=== PATIENT | male | born 1945 | race Caucasian/White ===

== ENCOUNTER 2017-07-07 10:10 | Inpatient (IN) | payer OTHER ==
[~2017-07-07 10:10] MED LIST: ATROPINE 1 MG/10 ML SYRINGE IV; CIPRO 400 MG/200 ML D5W IVPB; EPHEDrine SULFATE 50 MG/5 ML SYG IV; FENTAnyl 50 MCG/ML VIAL IV; HYDROmorphONE (0.2 MG/ML) 10ML SYG IV; LABETALOL HCL 20MG INJ IV; LIDOCAINE 100 MG SYRINGE; MEPERIDINE 25 MG INJ IV; MIDAZOLAM 1 MG/ML 2 ML INJ IV; OXYCODONE/ACETAMINOPHEN (5/325) TAB PO; ROCURONIUM 50 MG INJ; hydrALAzine 20 MG INJ IV; morphine (1 MG/ML) 10ML SYRINGE IV
[2017-07-07] MEDS ORDERED: MIDAZOLAM 1 MG/ML 2 ML INJ (10:50)
[2017-07-07] MEDS ORDERED: ROCURONIUM 50 MG INJ (10:50)
[2017-07-07] MEDS ORDERED: PROPOFOL 20 ML (10:50)
[2017-07-07] MEDS ORDERED: GLYCOPYRROLATE 0.4 MG INJ (10:50)
[2017-07-07] MEDS ORDERED: FENTAnyl 50 MCG/ML VIAL ×2 (10:50→15:53)
[2017-07-07] MEDS ORDERED: NEOSTIGMINE 3 MG/3 ML SYRINGE (10:50)
[2017-07-07] MEDS ORDERED: DEXAMETHASONE 4 MG/ML 1 ML INJ (10:51)
[2017-07-07] MEDS ORDERED: ONDANSETRON 4 MG INJ (10:52)
[2017-07-07 11:20] LABS: ADD MAN DIFF? NO
[2017-07-07 11:24] LABS: BASOPHIL # 0.1 10^3/ul (0.0-0.1); BASOPHILS % 0.5 % (0.0-2.0); EOSINOPHILS # 0.4 10^3/ul (0.0-0.5); EOSINOPHILS % 3.7 % (0.0-7.0); HEMATOCRIT 41.4 % (42.0-52.0); HEMOGLOBIN 14.1 g/dl (14.0-18.0); LYMPHOCYTES # 2.4 10^3/ul (0.8-2.9); LYMPHOCYTES % 23.1 % (15.0-51.0); MEAN CORPUSCULAR HEMOGLOBIN 30.5 pg (29.0-33.0); MEAN CORPUSCULAR HGB CONC 34.1 g/dl (32.0-37.0); MEAN CORPUSCULAR VOLUME 89.6 fl (82.0-101.0); MEAN PLATELET VOLUME 10.3 fl (7.4-10.4); MONOCYTE # 0.9 10^3/ul (0.3-0.9); MONOCYTES % 8.4 % (0.0-11.0); NEUTROPHIL # 6.6 10^3/ul (1.6-7.5); NEUTROPHILS % 63.8 % (39.0-77.0); PLATELET COUNT 274 10^3/UL (140-415); RED BLOOD COUNT 4.62 10^6/ul (4.70-6.10); RED CELL DISTRIBUTION WIDTH 14.4 % (11.5-14.5)
[2017-07-07 11:24] LABS: WHITE BLOOD COUNT 10.3 10^3/ul (4.8-10.8)
[2017-07-07 11:50] LABS: ALANINE AMINOTRANSFERASE 32 IU/L (13-69); ALBUMIN 4.3 g/dl (3.3-4.9); ALBUMIN/GLOBULIN RATIO 1.16; ALKALINE PHOSPHATASE 123 IU/L (42-121); ANION GAP 15 (8-16); ASPARTATE AMINO TRANSFERASE 41 IU/L (15-46); BILIRUBIN,INDIRECT 0.2 mg/dl (0-1.1); BILIRUBIN,TOTAL 0.2 mg/dl (0.2-1.3); CARBON DIOXIDE 31 mmol/L (21-31); CHLORIDE 101 mmol/L (97-110); GLUCOSE 108 mg/dl (70-220); INR 0.93; PROTIME 12.5 Sec (11.9-14.9)
[2017-07-07 12:01] LABS: CALCIUM 9.1 mg/dl (8.4-10.2); CREATININE 1.17 mg/dl (0.61-1.24); POTASSIUM 3.4 mmol/L (3.5-5.1); SODIUM 144 mmol/L (135-144)
[2017-07-07 12:03] LABS: BLOOD UREA NITROGEN 25 mg/dl (7-20)
[2017-07-07 16:11] LABS: HEMATOCRIT 32.2 % (42.0-52.0); HEMOGLOBIN 10.7 g/dl (14.0-18.0)
[2017-07-07] MEDS ORDERED: SUGAMMADEX SODIUM 200 MG/2 ML VIAL IV (16:53)
[2017-07-07] MEDS: CIPROFLOXACIN 400MG/D5W 200 ML IVPB (17:58)
[2017-07-07] MEDS ORDERED: CEPASTAT LOZENGE MT (18:00)
[2017-07-07] MEDS: ONDANSETRON 4 MG INJ IV (18:02)
[2017-07-07] MEDS: FENTAnyl 50 MCG/ML VIAL IV (18:03)
[2017-07-07] MEDS: DIPHENHYDRAMINE 50 MG INJ IV (18:16)
[2017-07-07] MEDS: CEPASTAT LOZENGE MT (18:40)
[2017-07-07] MEDS: DEXTROSE 5%-0.45% NACL 1,000 ML IV (19:12)
[2017-07-07] MEDS: LORAZEPAM 1 MG TAB PO (19:14)
[2017-07-07] MEDS: CIPROFLOXACIN 500 MG TAB PO (19:43)
[2017-07-07] MEDS: TOLTERODINE (SR) 4 MG CAP PO (19:43)
[2017-07-07] MEDS: morphine 2 MG INJ IV (22:05)
[2017-07-07] MEDS: BELLADONNA ALK/OPIUM SUPP PR (23:42)
[2017-07-08] MEDS: morphine 2 MG INJ IV ×2 (03:13→16:43)
[2017-07-08 05:01] LABS: ADD MAN DIFF? NO
[2017-07-08 05:10] LABS: WHITE BLOOD COUNT 13.9 10^3/ul (4.8-10.8)
[2017-07-08 05:10] LABS: BASOPHILS % 0.2 % (0.0-2.0); EOSINOPHILS % 0.1 % (0.0-7.0); HEMATOCRIT 28.8 % (42.0-52.0); HEMOGLOBIN 9.4 g/dl (14.0-18.0); LYMPHOCYTES # 1.4 10^3/ul (0.8-2.9); LYMPHOCYTES % 10.1 % (15.0-51.0); MEAN CORPUSCULAR HEMOGLOBIN 29.9 pg (29.0-33.0); MEAN CORPUSCULAR HGB CONC 32.6 g/dl (32.0-37.0); MEAN CORPUSCULAR VOLUME 91.7 fl (82.0-101.0); MEAN PLATELET VOLUME 10.1 fl (7.4-10.4); MONOCYTE # 1.1 10^3/ul (0.3-0.9); MONOCYTES % 8.1 % (0.0-11.0); NEUTROPHIL # 11.2 10^3/ul (1.6-7.5); PLATELET COUNT 207 10^3/UL (140-415); RED BLOOD COUNT 3.14 10^6/ul (4.70-6.10); RED CELL DISTRIBUTION WIDTH 14.6 % (11.5-14.5)
[2017-07-08] MEDS: CIPROFLOXACIN 500 MG TAB PO ×2 (05:42→08:42)
[2017-07-08] MEDS: BELLADONNA ALK/OPIUM SUPP PR (06:12)
[2017-07-08] MEDS: LORAZEPAM 1 MG TAB PO ×2 (06:45→21:14)
[2017-07-08] MEDS: POTASSIUM CHLORIDE (SR) 20 MEQ TAB PO (06:45)
[2017-07-08] MEDS ORDERED: hydrALAzine 20 MG INJ IV (08:00)
[2017-07-08] MEDS: TAMSULOSIN (SR) 0.4 MG CAP PO (08:42)
[2017-07-08] MEDS: METOPROLOL 25 MG TAB PO ×2 (08:42→20:58)
[2017-07-08] MEDS: ONDANSETRON 4 MG INJ IV (08:42)
[2017-07-08] MEDS: SERTRALINE 100 MG TAB PO (08:43)
[2017-07-08] MEDS: ISOSORBIDE MONONITRATE(SR)30 MG TAB PO (08:43)
[2017-07-08] MEDS: AMLODIPINE 10 MG TAB PO (08:43)
[2017-07-08] MEDS: TOLTERODINE (SR) 4 MG CAP PO (08:43)
[2017-07-08] MEDS: FAMOTIDINE 20 MG TAB PO ×2 (08:43→21:03)
[2017-07-08] MEDS: FERROUS SULFATE (EC) 325 MG TAB PO ×2 (08:43→21:00)
[2017-07-08] MEDS: DEXTROSE 5%-0.45% NACL 1,000 ML IV (13:03)
[2017-07-08] MEDS: MAGNESIUM HYDROXIDE 30ML CUP PO ×3 (16:43→18:59)
[2017-07-08 18:22] LABS: ANION GAP 10 (8-16); BLOOD UREA NITROGEN 18 mg/dl (7-20); CARBON DIOXIDE 31 mmol/L (21-31); CHLORIDE 106 mmol/L (97-110); CREATININE 1.09 mg/dl (0.61-1.24); GLUCOSE 99 mg/dl (70-220); POTASSIUM 3.7 mmol/L (3.5-5.1); SODIUM 143 mmol/L (135-144)
[2017-07-08] MEDS ORDERED: MAGNESIUM HYDROXIDE 30ML CUP PO (19:00)
[2017-07-08] MEDS: HYDROCODONE/APAP (5/325) TAB PO (19:33)
[2017-07-08] MEDS: QUETIAPINE 100 MG TAB PO (21:01)
[2017-07-08] MEDS: ATORVASTATIN 20 MG TAB PO (21:02)
[2017-07-09] MEDS: HYDROCODONE/APAP (5/325) TAB PO ×2 (01:30→07:32)
[2017-07-09] MEDS: DOCUSATE SODIUM 100 MG CAP PO (01:30)
[2017-07-09] MEDS: BISACODYL 10 MG SUPP PR (01:36)
[2017-07-09] MEDS: CIPROFLOXACIN 500 MG TAB PO ×2 (06:06→18:11)
[2017-07-09] MEDS: DEXTROSE 5%-0.45% NACL 1,000 ML IV (09:03)
[2017-07-09] MEDS: AMLODIPINE 10 MG TAB PO (09:40)
[2017-07-09] MEDS: TOLTERODINE (SR) 4 MG CAP PO (09:40)
[2017-07-09] MEDS: SERTRALINE 100 MG TAB PO (09:41)
[2017-07-09] MEDS: FAMOTIDINE 20 MG TAB PO ×2 (09:41→20:13)
[2017-07-09] MEDS: ISOSORBIDE MONONITRATE(SR)30 MG TAB PO (09:41)
[2017-07-09] MEDS: FERROUS SULFATE (EC) 325 MG TAB PO ×2 (09:41→20:13)
[2017-07-09] MEDS: METOPROLOL 25 MG TAB PO ×2 (09:41→20:13)
[2017-07-09 10:49] LABS: ADD UMIC YES; UR ASCORBIC ACID NEGATIVE (NEGATIVE); UR BACTERIA FEW /HPF (NONE SEEN); UR BILIRUBIN (Dip) NEGATIVE (NEGATIVE); UR BLOOD (Dip) 3+ mg/dL (NEGATIVE); UR CLARITY CLEAR (CLEAR); UR COLOR COLORLESS (YELLOW); UR GLUCOSE (Dip) NEGATIVE (NEGATIVE); UR KETONES (Dip) NEGATIVE (NEGATIVE); UR LEUKOCYTE ESTERASE (Dip) TRACE Leu/ul (NEGATIVE); UR NITRITE (Dip) NEGATIVE (NEGATIVE); UR RBC 182 /HPF (0-5); UR SPECIFIC GRAVITY (Dip) 1.004 (1.003-1.030); UR TOTAL PROTEIN (Dip) NEGATIVE (NEGATIVE); UR UROBILINOGEN (Dip) NEGATIVE (NEGATIVE); UR WBC 1 /HPF (0-5)
[2017-07-09] MEDS: MAGNESIUM CITRATE 300 ML BTL PO (11:09)
[2017-07-09] MEDS: LORAZEPAM 1 MG TAB PO ×2 (11:36→23:49)
[2017-07-09] MEDS: NA PHOSPHATE/BIPHOS 133 ML ENEMA PR (15:13)
[2017-07-09] MEDS: ATORVASTATIN 20 MG TAB PO (20:13)
[2017-07-09] MEDS: QUETIAPINE 100 MG TAB PO (20:13)
[2017-07-10] MEDS: CIPROFLOXACIN 500 MG TAB PO (06:21)
[2017-07-10] MEDS: SERTRALINE 100 MG TAB PO (09:36)
[2017-07-10] MEDS: FERROUS SULFATE (EC) 325 MG TAB PO (09:36)
[2017-07-10] MEDS: ISOSORBIDE MONONITRATE(SR)30 MG TAB PO (09:37)
[2017-07-10] MEDS: FAMOTIDINE 20 MG TAB PO (09:37)
[2017-07-10] MEDS: METOPROLOL 25 MG TAB PO (09:37)
[2017-07-10] MEDS: HYDROCODONE/APAP (5/325) TAB PO (09:51)
== END 2017-07-10 13:10 | disposition home or self-care (01) | DRG 713 ==
LOC: REC 10:10 → MS1 21:25
PROC: 0T7D8ZZ Dilation of Urethra, Via Natural or Artificial Opening Endoscopic (ICD-10-PCS; principal; 2017-07-07 12:30)
PROC: 0VT08ZZ Resection of Prostate, Via Natural or Artificial Opening Endoscopic (ICD-10-PCS; 2017-07-07 12:30)
DX: N40.1 Benign prostatic hyperplasia with lower urinary tract symptoms (principal); D62 Acute posthemorrhagic anemia; I10 Essential (primary) hypertension; K21.9 Gastro-esophageal reflux disease without esophagitis; F41.9 Anxiety disorder, unspecified; R11.0 Nausea; K59.00 Constipation, unspecified; R35.0 Frequency of micturition; R39.15 Urgency of urination; N35.9 Urethral stricture, unspecified
CPT/HCPCS: 71045; 74018; 80048; 80053; 81001; 82962; 85014; 85018; 85025; 85610; 85730; 87086; 88309; 93005

== ENCOUNTER 2017-07-12 13:16 | Emergency (ER) | payer OTHER ==
[2017-07-12] MEDS: NA PHOSPHATE/BIPHOS 133 ML ENEMA PR ×3 (14:12→15:48)
[2017-07-12] MEDS: BISACODYL 10 MG SUPP PR (14:12)
[2017-07-12] MEDS: IBUPROFEN 600 MG TAB PO (15:15)
== END 2017-07-12 17:45 | disposition home or self-care (01) ==
LOC: E/R 17:45
DX: K59.00 Constipation, unspecified (principal); N99.821 Postprocedural hemorrhage of a genitourinary system organ or structure following other procedure; I10 Essential (primary) hypertension
CPT/HCPCS: 99283; Z7502

== ENCOUNTER 2017-07-29 16:54 | Inpatient (IN) | payer OTHER ==
[2017-07-29] MEDS ORDERED: DOCUSATE SODIUM 100 MG CAP PO (18:30)
[2017-07-29] MEDS ORDERED: ACETAMINOPHEN 325 MG TAB PO (18:30)
[2017-07-29] MEDS ORDERED: SENNA TAB PO (18:30)
[2017-07-29] MEDS ORDERED: VANCOMYCIN IV PER PHARMACY XX (18:30)
[2017-07-29] MEDS ORDERED: IBUPROFEN 600 MG TAB PO (18:30)
[2017-07-29] MEDS ORDERED: ONDANSETRON 4 MG TAB PO (18:30)
[2017-07-29] MEDS ORDERED: NACL 0.9% 3 ML SYG IV (18:30)
[2017-07-29] MEDS ORDERED: ONDANSETRON 4 MG INJ IV (18:30)
[2017-07-29] MEDS ORDERED: HYDROCODONE/APAP (5/325) TAB PO (18:30)
[2017-07-29] MEDS: ATORVASTATIN 20 MG TAB PO (20:46)
[2017-07-29] MEDS: QUETIAPINE 100 MG TAB PO (20:46)
[2017-07-29] MEDS: TAMSULOSIN (SR) 0.4 MG CAP PO (20:47)
[2017-07-29] MEDS: VANCOMYCIN 1.5 GM in SOD CHLORIDE 0.9% 250 ML IVPB (20:47)
[2017-07-29] MEDS: DIPHENHYDRAMINE 50 MG CAP PO (20:47)
[2017-07-29] MEDS: LORAZEPAM 1 MG TAB PO (23:18)
[2017-07-30 05:59] LABS: ADD MAN DIFF? NO
[2017-07-30 06:06] LABS: BASOPHILS % 0.2 % (0.0-2.0); EOSINOPHILS # 0.3 10^3/ul (0.0-0.5); EOSINOPHILS % 5.5 % (0.0-7.0); HEMATOCRIT 25.2 % (42.0-52.0); LYMPHOCYTES # 1.3 10^3/ul (0.8-2.9); LYMPHOCYTES % 21.3 % (15.0-51.0); MEAN CORPUSCULAR HEMOGLOBIN 28.8 pg (29.0-33.0); MEAN CORPUSCULAR HGB CONC 31.7 g/dl (32.0-37.0); MEAN CORPUSCULAR VOLUME 90.6 fl (82.0-101.0); MEAN PLATELET VOLUME 9.6 fl (7.4-10.4); MONOCYTE # 0.4 10^3/ul (0.3-0.9); MONOCYTES % 7.1 % (0.0-11.0); NEUTROPHILS % 65.1 % (39.0-77.0); PLATELET COUNT 424 10^3/UL (140-415); RED BLOOD COUNT 2.78 10^6/ul (4.70-6.10); RED CELL DISTRIBUTION WIDTH 15.5 % (11.5-14.5)
[2017-07-30 06:06] LABS: WHITE BLOOD COUNT 6.2 10^3/ul (4.8-10.8)
[2017-07-30 06:38] LABS: ANION GAP 8 (8-16); BLOOD UREA NITROGEN 15 mg/dl (7-20); CALCIUM 8.1 mg/dl (8.4-10.2); CARBON DIOXIDE 26 mmol/L (21-31); CHLORIDE 115 mmol/L (97-110); CREATININE 1.17 mg/dl (0.61-1.24); GLUCOSE 102 mg/dl (70-220); PHOSPHORUS 2.8 mg/dl (2.5-4.9); SODIUM 145 mmol/L (135-144)
[2017-07-30] MEDS ORDERED: VANCOMYCIN 1 GM 250 ML IVPB (08:00)
[2017-07-30] MEDS: LORAZEPAM 1 MG TAB PO ×3 (09:00→21:33)
[2017-07-30] MEDS: POLYETHYLENE GLYCOL 17 GM PACKET PO (09:54)
[2017-07-30] MEDS: AMLODIPINE 10 MG TAB PO (09:55)
[2017-07-30] MEDS: BENAZEPRIL 20 MG TAB PO (09:55)
[2017-07-30] MEDS: ENOXAPARIN 40 MG/0.4 ML SYG SC (10:00)
[2017-07-30] MEDS: DIPHENHYDRAMINE 25 MG CAP PO ×2 (10:19→20:39)
[2017-07-30] MEDS: FOSFOMYCIN 3 GM PACKET PO (11:16)
[2017-07-30] MEDS: HYDROCORTISONE 0.5% 28.35 GM CR TOP ×2 (13:20→20:39)
[2017-07-30] MEDS: LORATADINE 10 MG TAB PO (14:16)
[2017-07-30 15:29] LABS: ALBUMIN 2.4 g/dl (3.3-4.9)
[2017-07-30] MEDS: TAMSULOSIN (SR) 0.4 MG CAP PO (20:33)
[2017-07-30] MEDS: ATORVASTATIN 20 MG TAB PO (20:33)
[2017-07-30] MEDS: QUETIAPINE 100 MG TAB PO (20:34)
== END 2017-07-30 21:43 | disposition home or self-care (01) | DRG 607 ==
LOC: MS2 16:54
PROVIDERS: Internal Medicine
DX: L27.0 Generalized skin eruption due to drugs and medicaments taken internally (principal); N39.0 Urinary tract infection, site not specified; Y92.9 Unspecified place or not applicable; T37.0X5A Adverse effect of sulfonamides, initial encounter; F41.9 Anxiety disorder, unspecified; I10 Essential (primary) hypertension; E78.5 Hyperlipidemia, unspecified; N40.0 Benign prostatic hyperplasia without lower urinary tract symptoms
CPT/HCPCS: 80048; 82040; 83735; 84100; 85025

== ENCOUNTER 2017-08-11 15:02 | Outpatient (CLI) | payer OTHER | END 2017-08-11 16:10 | disposition home or self-care (01) | LOC: DCC 15:02 | DX: R21 Rash and other nonspecific skin eruption (principal); L27.0 Generalized skin eruption due to drugs and medicaments taken internally; T37.0X5A Adverse effect of sulfonamides, initial encounter; N40.0 Benign prostatic hyperplasia without lower urinary tract symptoms; F41.9 Anxiety disorder, unspecified; I10 Essential (primary) hypertension; E78.5 Hyperlipidemia, unspecified; N39.0 Urinary tract infection, site not specified; Z88.0 Allergy status to penicillin; Z88.2 Allergy status to sulfonamides | CPT/HCPCS: G0463 ==

== ENCOUNTER 2017-08-11 15:46 | Inpatient (IN) | payer OTHER ==
[2017-08-11] MEDS: ALBUTEROL 0.5% (NEB) 2.5 MG/0.5 ML AMP INH (16:18)
[2017-08-11] MEDS: DIPHENHYDRAMINE 50 MG INJ IV (16:20)
[2017-08-11] MEDS: METHYLPREDNISOLONE 125 MG INJ IV (16:21)
[2017-08-11] MEDS: FAMOTIDINE 20 MG TAB PO (16:21)
[2017-08-11 16:36] LABS: ADD MAN DIFF? NO
[2017-08-11 16:45] LABS: WHITE BLOOD COUNT 9.4 10^3/ul (4.8-10.8)
[2017-08-11 16:46] LABS: BASOPHILS % 0.1 % (0.0-2.0); EOSINOPHILS # 0.5 10^3/ul (0.0-0.5); EOSINOPHILS % 5.6 % (0.0-7.0); HEMATOCRIT 30.3 % (42.0-52.0); HEMOGLOBIN 9.4 g/dl (14.0-18.0); LYMPHOCYTES # 0.8 10^3/ul (0.8-2.9); LYMPHOCYTES % 8.2 % (15.0-51.0); MEAN CORPUSCULAR HEMOGLOBIN 27.2 pg (29.0-33.0); MEAN CORPUSCULAR VOLUME 87.8 fl (82.0-101.0); MEAN PLATELET VOLUME 10.1 fl (7.4-10.4); MONOCYTE # 0.3 10^3/ul (0.3-0.9); MONOCYTES % 3.2 % (0.0-11.0); NEUTROPHIL # 7.7 10^3/ul (1.6-7.5); NEUTROPHILS % 81.9 % (39.0-77.0); PLATELET COUNT 311 10^3/UL (140-415); RED BLOOD COUNT 3.45 10^6/ul (4.70-6.10); RED CELL DISTRIBUTION WIDTH 15.2 % (11.5-14.5)
[2017-08-11 17:05] LABS: ANION GAP 11 (8-16); BLOOD UREA NITROGEN 20 mg/dl (7-20); CALCIUM 8.3 mg/dl (8.4-10.2); CARBON DIOXIDE 28 mmol/L (21-31); CHLORIDE 98 mmol/L (97-110); CREATININE 1.52 mg/dl (0.61-1.24); GLUCOSE 97 mg/dl (70-220); POTASSIUM 3.2 mmol/L (3.5-5.1); SODIUM 134 mmol/L (135-144)
[2017-08-11 17:18] LABS: TROPONIN-I < 0.010 ng/ml (0.000-0.120)
[2017-08-11] MEDS ORDERED: ACETAMINOPHEN 325 MG TAB PO (19:00)
[2017-08-11] MEDS ORDERED: NACL 0.9% 3 ML SYG IV (19:00)
[2017-08-11] MEDS ORDERED: LORAZEPAM 1 MG TAB PO (19:00)
[2017-08-11] MEDS ORDERED: IBUPROFEN 600 MG TAB PO (19:00)
[2017-08-11] MEDS ORDERED: ALBUTEROL/IPRATROPIUM (NEB) 3 ML AMP HHN (19:00)
[2017-08-11] MEDS: POTASSIUM CHLORIDE (SR) 20 MEQ TAB PO (19:37)
[2017-08-11] MEDS: ATORVASTATIN 20 MG TAB PO (22:12)
[2017-08-11] MEDS: QUETIAPINE 100 MG TAB PO (22:13)
[2017-08-11] MEDS ORDERED: LORAZEPAM 0.5 MG TAB (23:03)
[2017-08-11] MEDS: LORAZEPAM 0.5 MG TAB PO (23:11)
[2017-08-12 05:07] LABS: ADD MAN DIFF? NO
[2017-08-12 05:10] LABS: WHITE BLOOD COUNT 3.9 10^3/ul (4.8-10.8)
[2017-08-12 05:10] LABS: HEMATOCRIT 26.9 % (42.0-52.0); HEMOGLOBIN 8.6 g/dl (14.0-18.0); LYMPHOCYTES # 0.6 10^3/ul (0.8-2.9); LYMPHOCYTES % 15.5 % (15.0-51.0); MEAN CORPUSCULAR HEMOGLOBIN 27.3 pg (29.0-33.0); MEAN CORPUSCULAR VOLUME 85.4 fl (82.0-101.0); MEAN PLATELET VOLUME 9.8 fl (7.4-10.4); MONOCYTE # 0.1 10^3/ul (0.3-0.9); NEUTROPHIL # 3.2 10^3/ul (1.6-7.5); PLATELET COUNT 303 10^3/UL (140-415); RED BLOOD COUNT 3.15 10^6/ul (4.70-6.10); RED CELL DISTRIBUTION WIDTH 15.2 % (11.5-14.5)
[2017-08-12 05:37] LABS: ANION GAP 14 (8-16); BLOOD UREA NITROGEN 19 mg/dl (7-20); CALCIUM 8.4 mg/dl (8.4-10.2); CARBON DIOXIDE 24 mmol/L (21-31); CHLORIDE 105 mmol/L (97-110); CREATININE 1.46 mg/dl (0.61-1.24); GLUCOSE 171 mg/dl (70-220); MAGNESIUM 2.3 mg/dl (1.7-2.5); PHOSPHORUS 2.8 mg/dl (2.5-4.9); POTASSIUM 3.8 mmol/L (3.5-5.1); SODIUM 139 mmol/L (135-144)
[2017-08-12] MEDS: TAMSULOSIN (SR) 0.4 MG CAP PO (08:26)
[2017-08-12] MEDS: FINASTERIDE 5 MG TAB PO (08:26)
[2017-08-12] MEDS: AMLODIPINE 10 MG TAB PO (08:27)
[2017-08-12] MEDS: BENAZEPRIL 20 MG TAB PO (08:27)
[2017-08-12] MEDS: ENOXAPARIN 40 MG/0.4 ML SYG SC (08:28)
[2017-08-12] MEDS: HYDROCORTISONE 1% 28 GM CR TOP ×3 (09:00→21:01)
[2017-08-12] MEDS: SOD CHLORIDE 0.9% 1,000 ML IV ×3 (10:02→19:40)
[2017-08-12] MEDS: FOSFOMYCIN 3 GM PACKET PO (10:03)
[2017-08-12] MEDS: LORAZEPAM 0.5 MG TAB PO (15:16)
[2017-08-12] MEDS: ARTIFICIAL TEARS 15 ML OPH BOTH EYES ×2 (15:39→21:01)
[2017-08-12 16:01] LABS: ANION GAP 11 (8-16); BLOOD UREA NITROGEN 22 mg/dl (7-20); CALCIUM 8.5 mg/dl (8.4-10.2); CARBON DIOXIDE 26 mmol/L (21-31); CHLORIDE 107 mmol/L (97-110); CREATININE 1.28 mg/dl (0.61-1.24); GLUCOSE 126 mg/dl (70-220); POTASSIUM 3.8 mmol/L (3.5-5.1); SODIUM 140 mmol/L (135-144)
[2017-08-12] MEDS: QUETIAPINE 100 MG TAB PO (21:01)
[2017-08-12] MEDS: ATORVASTATIN 20 MG TAB PO (21:01)
[2017-08-13] MEDS: LORAZEPAM 0.5 MG TAB PO ×2 (01:06→12:06)
[2017-08-13] MEDS: DIPHENHYDRAMINE 50 MG CAP PO (05:29)
[2017-08-13 06:39] LABS: ANION GAP 9 (8-16); BLOOD UREA NITROGEN 23 mg/dl (7-20); CALCIUM 7.7 mg/dl (8.4-10.2); CARBON DIOXIDE 23 mmol/L (21-31); CHLORIDE 115 mmol/L (97-110); CREATININE 1.15 mg/dl (0.61-1.24); GLUCOSE 98 mg/dl (70-220); POTASSIUM 3.6 mmol/L (3.5-5.1); SODIUM 143 mmol/L (135-144)
[2017-08-13] MEDS: HYDROCORTISONE 1% 28 GM CR TOP ×2 (08:16→12:06)
[2017-08-13] MEDS: AMLODIPINE 10 MG TAB PO (08:17)
[2017-08-13] MEDS: FINASTERIDE 5 MG TAB PO (08:19)
[2017-08-13] MEDS: BENAZEPRIL 20 MG TAB PO (08:19)
[2017-08-13] MEDS: ENOXAPARIN 40 MG/0.4 ML SYG SC (08:20)
[2017-08-13] MEDS: TAMSULOSIN (SR) 0.4 MG CAP PO (08:27)
[2017-08-13] MEDS: ARTIFICIAL TEARS 15 ML OPH BOTH EYES (08:27)
== END 2017-08-13 17:28 | disposition home or self-care (01) | DRG 684 ==
LOC: E/R 15:46 → MS3 18:53
DX: N17.9 Acute kidney failure, unspecified (principal); T36.8X5A Adverse effect of other systemic antibiotics, initial encounter; Y92.019 Unspecified place in single-family (private) house as the place of occurrence of the external cause; T37.0X5A Adverse effect of sulfonamides, initial encounter; R06.2 Wheezing; N41.9 Inflammatory disease of prostate, unspecified; I10 Essential (primary) hypertension; E78.5 Hyperlipidemia, unspecified; N40.0 Benign prostatic hyperplasia without lower urinary tract symptoms
CPT/HCPCS: 71045; 80048; 83735; 84100; 84484; 85025; 94664; 96374; 96375; 99285-25

== ENCOUNTER 2017-08-19 02:41 | Inpatient (IN) | payer OTHER ==
[2017-08-19] MEDS: LIDOCAINE 2% JELLY 5 ML TOP (03:31)
[2017-08-19 04:22] LABS: ADD UMIC YES; UR ASCORBIC ACID NEGATIVE (NEGATIVE); UR BILIRUBIN (Dip) NEGATIVE (NEGATIVE); UR BLOOD (Dip) 1+ mg/dL (NEGATIVE); UR CLARITY SLIGHTLY CLOUDY (CLEAR); UR COLOR STRAW (YELLOW); UR GLUCOSE (Dip) NEGATIVE (NEGATIVE); UR KETONES (Dip) NEGATIVE (NEGATIVE); UR LEUKOCYTE ESTERASE (Dip) 3+ Leu/ul (NEGATIVE); UR NITRITE (Dip) NEGATIVE (NEGATIVE); UR RBC 8 /HPF (0-5); UR SPECIFIC GRAVITY (Dip) 1.008 (1.003-1.030); UR TOTAL PROTEIN (Dip) 1+ mg/dl (NEGATIVE); UR UROBILINOGEN (Dip) NEGATIVE (NEGATIVE); UR WBC 176 /HPF (0-5)
[2017-08-19] MEDS ORDERED: ALBUTEROL/IPRATROPIUM (NEB) 3 ML AMP HHN (08:00)
[2017-08-19] MEDS ORDERED: NACL 0.9% 3 ML SYG IV (08:00)
[2017-08-19] MEDS ORDERED: FOSFOMYCIN 3 GM PACKET PO ×2 (08:00→09:30)
[2017-08-19] MEDS ORDERED: CEFTRIAXONE 1 GM/50 ML (PMX) 50 ML IVPB (09:00)
[2017-08-19] MEDS: LORAZEPAM 1 MG TAB PO ×2 (09:22→21:10)
[2017-08-19] MEDS: TAMSULOSIN (SR) 0.4 MG CAP PO (09:22)
[2017-08-19] MEDS: AMLODIPINE 10 MG TAB PO (09:23)
[2017-08-19] MEDS: FINASTERIDE 5 MG TAB PO (09:23)
[2017-08-19] MEDS ORDERED: MEROPENEM 1 GM/50ML(PMX) 50 ML IVPB (09:30)
[2017-08-19] MEDS: DEXTROSE 5%-0.45% NACL 1,000 ML IV ×2 (10:02→15:58)
[2017-08-19 11:18] LABS: WHITE BLOOD COUNT 9.3 10^3/ul (4.8-10.8)
[2017-08-19 11:18] LABS: HEMATOCRIT 31.1 % (42.0-52.0); HEMOGLOBIN 9.6 g/dl (14.0-18.0); MEAN CORPUSCULAR HEMOGLOBIN 26.9 pg (29.0-33.0); MEAN CORPUSCULAR HGB CONC 30.9 g/dl (32.0-37.0); MEAN CORPUSCULAR VOLUME 87.1 fl (82.0-101.0); MEAN PLATELET VOLUME 9.7 fl (7.4-10.4); PLATELET COUNT 369 10^3/UL (140-415); POSITIVE DIFF @See below; RED BLOOD COUNT 3.57 10^6/ul (4.70-6.10); RED CELL DISTRIBUTION WIDTH 15.4 % (11.5-14.5)
[2017-08-19 11:23] LABS: ADD MAN DIFF? YES
[2017-08-19 11:39] LABS: ALANINE AMINOTRANSFERASE 33 IU/L (13-69); ALBUMIN 3.6 g/dl (3.3-4.9); ALBUMIN/GLOBULIN RATIO 1.09; ALKALINE PHOSPHATASE 114 IU/L (42-121); ANION GAP 14 (8-16); ASPARTATE AMINO TRANSFERASE 27 IU/L (15-46); BLOOD UREA NITROGEN 12 mg/dl (7-20); CALCIUM 8.7 mg/dl (8.4-10.2); CARBON DIOXIDE 23 mmol/L (21-31); CHLORIDE 110 mmol/L (97-110); CREATININE 0.93 mg/dl (0.61-1.24); GLUCOSE 204 mg/dl (70-220); POTASSIUM 4.3 mmol/L (3.5-5.1); SODIUM 143 mmol/L (135-144); TOTAL PROTEIN 6.9 g/dl (6.1-8.1)
[2017-08-19] MEDS ORDERED: AMIKACIN IV PER PHARMACY XX (12:30)
[2017-08-19 12:45] LABS: ANISOCYTOSIS 1+ (0-0); BAND NEUTROPHILS #M 0.6 10^3/ul (0.0-0.6); BAND NEUTROPHILS % (M) 7 % (0-4); BURR CELLS 1+ (0-0); EOSINOPHILS % (M) 2 % (0-7); ERYTHROBLAST% (NRBC) (M) 1 % (0-0); HYPOCHROMASIA 1+ (0-0); LYMPHOCYTES #M 0.9 10^3/ul (0.8-2.9); LYMPHOCYTES % (M) 10 % (15-51); MYELOCYTES % (M) 1 % (0-0); PLATELET ESTIMATE NORMAL; POIKILOCYTOSIS 1+ (0-0); POLYCHROMASIA 1+ (0-0); REACTIVE LYMPHOCYTES% (M) 1 % (0-0); SEG NEUT #M 7.4 10^3/ul (1.6-7.5); SEGMENTED NEUTROPHILS (M) % 79 % (39-77); SMUDGE%M 3 % (0-0)
[2017-08-19] MEDS ORDERED: DEXTROSE 5% IVPB (15:00)
[2017-08-19] MEDS ORDERED: AMIKACIN IVPB (15:00)
[2017-08-19] MEDS ORDERED: AMIKACIN 1,000 MG in DEXTROSE 5% 100 ML IVPB (15:00)
[2017-08-19] MEDS: ONDANSETRON 4 MG INJ IV (15:57)
[2017-08-19] MEDS: DIPHENHYDRAMINE 50 MG CAP PO (17:10)
[2017-08-19] MEDS: AMIKACIN 1,000 MG in SOD CHLORIDE 0.9% 250 ML IVPB (18:54)
[2017-08-19] MEDS ORDERED: ARTIFICIAL TEARS 15 ML OPH BOTH EYES (21:00)
[2017-08-19] MEDS: ATORVASTATIN 20 MG TAB PO (21:10)
[2017-08-19] MEDS: QUETIAPINE 100 MG TAB PO (22:05)
[2017-08-19] MEDS: MEROPENEM ID (22:13)
[2017-08-20] MEDS: DEXTROSE 5%-0.45% NACL 1,000 ML IV ×2 (03:36→14:09)
[2017-08-20 05:58] LABS: ADD MAN DIFF? NO
[2017-08-20 06:05] LABS: BASOPHILS % 0.2 % (0.0-2.0); EOSINOPHILS % 0.2 % (0.0-7.0); HEMATOCRIT 25.5 % (42.0-52.0); LYMPHOCYTES # 2.6 10^3/ul (0.8-2.9); MEAN CORPUSCULAR HGB CONC 31.4 g/dl (32.0-37.0); MEAN CORPUSCULAR VOLUME 86.1 fl (82.0-101.0); MEAN PLATELET VOLUME 9.8 fl (7.4-10.4); MONOCYTE # 1.2 10^3/ul (0.3-0.9); NEUTROPHIL # 9.6 10^3/ul (1.6-7.5); NEUTROPHILS % 70.2 % (39.0-77.0); PLATELET COUNT 331 10^3/UL (140-415); RED BLOOD COUNT 2.96 10^6/ul (4.70-6.10); RED CELL DISTRIBUTION WIDTH 15.4 % (11.5-14.5)
[2017-08-20 06:05] LABS: WHITE BLOOD COUNT 13.6 10^3/ul (4.8-10.8)
[2017-08-20 06:42] LABS: ALANINE AMINOTRANSFERASE 28 IU/L (13-69); ALBUMIN 2.7 g/dl (3.3-4.9); ALBUMIN/GLOBULIN RATIO 0.96; ALKALINE PHOSPHATASE 88 IU/L (42-121); ANION GAP 12 (8-16); ASPARTATE AMINO TRANSFERASE 16 IU/L (15-46); BLOOD UREA NITROGEN 15 mg/dl (7-20); CALCIUM 8.1 mg/dl (8.4-10.2); CARBON DIOXIDE 24 mmol/L (21-31); CHLORIDE 110 mmol/L (97-110); CREATININE 0.92 mg/dl (0.61-1.24); GLUCOSE 134 mg/dl (70-220); MAGNESIUM 2.1 mg/dl (1.7-2.5); PHOSPHORUS 3.6 mg/dl (2.5-4.9); POTASSIUM 3.6 mmol/L (3.5-5.1); SODIUM 142 mmol/L (135-144); TOTAL PROTEIN 5.5 g/dl (6.1-8.1)
[2017-08-20] MEDS: LORAZEPAM 1 MG TAB PO ×2 (07:51→20:27)
[2017-08-20] MEDS: DIPHENHYDRAMINE 50 MG CAP PO (07:55)
[2017-08-20] MEDS: TAMSULOSIN (SR) 0.4 MG CAP PO (08:21)
[2017-08-20] MEDS: FINASTERIDE 5 MG TAB PO (08:21)
[2017-08-20] MEDS: AMLODIPINE 10 MG TAB PO (08:21)
[2017-08-20] MEDS: ERTAPENEM SODIUM 1 GM in SOD CHLORIDE 0.9% 100 ML IVPB (11:26)
[2017-08-20] MEDS: LIDOCAINE 1% (MPF) 5 ML VIAL SC (12:00)
[2017-08-20] MEDS: ARTIFICIAL TEARS 15 ML OPH BOTH EYES ×2 (14:17→20:27)
[2017-08-20] MEDS: ACETAMINOPHEN 325 MG TAB PO (20:27)
[2017-08-20] MEDS: QUETIAPINE 100 MG TAB PO (20:27)
[2017-08-20] MEDS: ATORVASTATIN 20 MG TAB PO (20:27)
[2017-08-20 20:35] LABS: ADD UMIC YES; UR ASCORBIC ACID NEGATIVE (NEGATIVE); UR BILIRUBIN (Dip) NEGATIVE (NEGATIVE); UR BLOOD (Dip) 2+ mg/dL (NEGATIVE); UR BUDDING YEAST FEW /HPF (NONE SEEN); UR CLARITY CLEAR (CLEAR); UR COLOR COLORLESS (YELLOW); UR GLUCOSE (Dip) NEGATIVE (NEGATIVE); UR KETONES (Dip) NEGATIVE (NEGATIVE); UR LEUKOCYTE ESTERASE (Dip) 2+ Leu/ul (NEGATIVE); UR NITRITE (Dip) NEGATIVE (NEGATIVE); UR RBC 29 /HPF (0-5); UR SPECIFIC GRAVITY (Dip) 1.004 (1.003-1.030); UR TOTAL PROTEIN (Dip) 2+ mg/dl (NEGATIVE); UR UROBILINOGEN (Dip) NEGATIVE (NEGATIVE); UR WBC 101 /HPF (0-5)
[2017-08-20] MEDS: morphine LIQ (10 MG/5 ML) CUP PO (21:52)
[2017-08-21] MEDS: DEXTROSE 5%-0.45% NACL 1,000 ML IV ×4 (00:08→23:15)
[2017-08-21 05:10] LABS: ADD MAN DIFF? NO
[2017-08-21 05:31] LABS: WHITE BLOOD COUNT 8.9 10^3/ul (4.8-10.8)
[2017-08-21 05:31] LABS: BASOPHILS % 0.4 % (0.0-2.0); EOSINOPHILS # 0.2 10^3/ul (0.0-0.5); HEMATOCRIT 25.9 % (42.0-52.0); LYMPHOCYTES # 2.3 10^3/ul (0.8-2.9); LYMPHOCYTES % 25.9 % (15.0-51.0); MEAN CORPUSCULAR HEMOGLOBIN 26.6 pg (29.0-33.0); MEAN CORPUSCULAR HGB CONC 30.9 g/dl (32.0-37.0); MEAN PLATELET VOLUME 9.9 fl (7.4-10.4); MONOCYTES % 11.3 % (0.0-11.0); NEUTROPHIL # 5.3 10^3/ul (1.6-7.5); NEUTROPHILS % 59.1 % (39.0-77.0); NUCLEATED RED BLOOD CELLS% 0.2 /100WBC (0.0-0.0); PLATELET COUNT 309 10^3/UL (140-415); RED BLOOD COUNT 3.01 10^6/ul (4.70-6.10); RED CELL DISTRIBUTION WIDTH 15.8 % (11.5-14.5)
[2017-08-21 05:55] LABS: ALANINE AMINOTRANSFERASE 27 IU/L (13-69); ALBUMIN 2.8 g/dl (3.3-4.9); ALKALINE PHOSPHATASE 90 IU/L (42-121); ANION GAP 12 (8-16); ASPARTATE AMINO TRANSFERASE 16 IU/L (15-46); BILIRUBIN,INDIRECT 0.1 mg/dl (0-1.1); BILIRUBIN,TOTAL 0.1 mg/dl (0.2-1.3); BLOOD UREA NITROGEN 15 mg/dl (7-20); CALCIUM 8.1 mg/dl (8.4-10.2); CARBON DIOXIDE 26 mmol/L (21-31); CHLORIDE 109 mmol/L (97-110); CREATININE 1.02 mg/dl (0.61-1.24); GLUCOSE 117 mg/dl (70-220); POTASSIUM 3.7 mmol/L (3.5-5.1); SODIUM 143 mmol/L (135-144); TOTAL PROTEIN 5.6 g/dl (6.1-8.1)
[2017-08-21] MEDS: FINASTERIDE 5 MG TAB PO (08:26)
[2017-08-21] MEDS: TAMSULOSIN (SR) 0.4 MG CAP PO (08:26)
[2017-08-21] MEDS: AMLODIPINE 10 MG TAB PO (08:27)
[2017-08-21] MEDS: morphine LIQ (10 MG/5 ML) CUP PO (08:27)
[2017-08-21] MEDS: ARTIFICIAL TEARS 15 ML OPH BOTH EYES ×2 (08:27→21:50)
[2017-08-21] MEDS: PHENAZOPYRIDINE 200 MG TAB PO ×3 (09:39→21:49)
[2017-08-21] MEDS: ERTAPENEM SODIUM 1 GM in SOD CHLORIDE 0.9% 100 ML IVPB (10:37)
[2017-08-21] MEDS: LORAZEPAM 1 MG TAB PO ×2 (10:37→22:07)
[2017-08-21] MEDS: ATORVASTATIN 20 MG TAB PO (21:49)
[2017-08-21] MEDS: MUPIROCIN 2% 22 GM OINT TOP (21:50)
[2017-08-21] MEDS: QUETIAPINE 100 MG TAB PO (21:50)
[2017-08-22 05:24] LABS: ADD MAN DIFF? NO
[2017-08-22 05:32] LABS: BASOPHILS % 0.4 % (0.0-2.0); EOSINOPHILS # 0.3 10^3/ul (0.0-0.5); EOSINOPHILS % 4.2 % (0.0-7.0); HEMATOCRIT 25.8 % (42.0-52.0); HEMOGLOBIN 8.1 g/dl (14.0-18.0); LYMPHOCYTES # 1.9 10^3/ul (0.8-2.9); LYMPHOCYTES % 25.6 % (15.0-51.0); MEAN CORPUSCULAR HEMOGLOBIN 26.6 pg (29.0-33.0); MEAN CORPUSCULAR HGB CONC 31.4 g/dl (32.0-37.0); MEAN CORPUSCULAR VOLUME 84.9 fl (82.0-101.0); MEAN PLATELET VOLUME 9.8 fl (7.4-10.4); MONOCYTES % 12.5 % (0.0-11.0); NEUTROPHIL # 4.2 10^3/ul (1.6-7.5); NEUTROPHILS % 55.7 % (39.0-77.0); NUCLEATED RED BLOOD CELLS% 0.3 /100WBC (0.0-0.0); PLATELET COUNT 279 10^3/UL (140-415); RED BLOOD COUNT 3.04 10^6/ul (4.70-6.10); RED CELL DISTRIBUTION WIDTH 15.8 % (11.5-14.5)
[2017-08-22 05:32] LABS: WHITE BLOOD COUNT 7.6 10^3/ul (4.8-10.8)
[2017-08-22 05:57] LABS: ANION GAP 10 (8-16); BLOOD UREA NITROGEN 13 mg/dl (7-20); CALCIUM 8.1 mg/dl (8.4-10.2); CARBON DIOXIDE 25 mmol/L (21-31); CHLORIDE 112 mmol/L (97-110); CREATININE 0.93 mg/dl (0.61-1.24); GLUCOSE 109 mg/dl (70-220); MAGNESIUM 2.3 mg/dl (1.7-2.5); PHOSPHORUS 3.4 mg/dl (2.5-4.9); POTASSIUM 3.7 mmol/L (3.5-5.1); SODIUM 143 mmol/L (135-144)
[2017-08-22] MEDS: LORAZEPAM 1 MG TAB PO ×2 (08:46→21:52)
[2017-08-22] MEDS: TAMSULOSIN (SR) 0.4 MG CAP PO (08:46)
[2017-08-22] MEDS: PHENAZOPYRIDINE 200 MG TAB PO ×3 (08:46→20:59)
[2017-08-22] MEDS: FINASTERIDE 5 MG TAB PO (08:46)
[2017-08-22] MEDS: AMLODIPINE 10 MG TAB PO (08:46)
[2017-08-22] MEDS: ARTIFICIAL TEARS 15 ML OPH BOTH EYES ×3 (08:46→21:03)
[2017-08-22] MEDS: MUPIROCIN 2% 22 GM OINT TOP ×2 (08:49→21:01)
[2017-08-22] MEDS: ERTAPENEM SODIUM 1 GM in SOD CHLORIDE 0.9% 100 ML IVPB (10:34)
[2017-08-22] MEDS: DEXTROSE 5%-0.45% NACL 1,000 ML IV (10:34)
[2017-08-22] MEDS: morphine LIQ (10 MG/5 ML) CUP PO ×2 (14:41→20:09)
[2017-08-22] MEDS: ATORVASTATIN 20 MG TAB PO (20:59)
[2017-08-22] MEDS: QUETIAPINE 100 MG TAB PO (20:59)
[2017-08-23] MEDS: DEXTROSE 5%-0.45% NACL 1,000 ML IV ×3 (01:32→21:09)
[2017-08-23 05:52] LABS: ADD MAN DIFF? NO
[2017-08-23 05:57] LABS: WHITE BLOOD COUNT 8.3 10^3/ul (4.8-10.8)
[2017-08-23 05:57] LABS: BASOPHILS % 0.5 % (0.0-2.0); EOSINOPHILS # 0.5 10^3/ul (0.0-0.5); EOSINOPHILS % 5.8 % (0.0-7.0); HEMATOCRIT 28.5 % (42.0-52.0); HEMOGLOBIN 8.7 g/dl (14.0-18.0); LYMPHOCYTES # 2.6 10^3/ul (0.8-2.9); MEAN CORPUSCULAR HEMOGLOBIN 26.3 pg (29.0-33.0); MEAN CORPUSCULAR HGB CONC 30.5 g/dl (32.0-37.0); MEAN CORPUSCULAR VOLUME 86.1 fl (82.0-101.0); NEUTROPHIL # 4.1 10^3/ul (1.6-7.5); NEUTROPHILS % 49.9 % (39.0-77.0); PLATELET COUNT 292 10^3/UL (140-415); RED BLOOD COUNT 3.31 10^6/ul (4.70-6.10); RED CELL DISTRIBUTION WIDTH 15.9 % (11.5-14.5)
[2017-08-23 06:22] LABS: ANION GAP 13 (8-16); BLOOD UREA NITROGEN 16 mg/dl (7-20); CALCIUM 8.3 mg/dl (8.4-10.2); CARBON DIOXIDE 24 mmol/L (21-31); CHLORIDE 110 mmol/L (97-110); CREATININE 1.17 mg/dl (0.61-1.24); GLUCOSE 103 mg/dl (70-220); MAGNESIUM 2.3 mg/dl (1.7-2.5); PHOSPHORUS 3.6 mg/dl (2.5-4.9); POTASSIUM 3.8 mmol/L (3.5-5.1); SODIUM 143 mmol/L (135-144)
[2017-08-23] MEDS: FINASTERIDE 5 MG TAB PO (08:28)
[2017-08-23] MEDS: TAMSULOSIN (SR) 0.4 MG CAP PO (08:28)
[2017-08-23] MEDS: MUPIROCIN 2% 22 GM OINT TOP ×2 (08:28→21:04)
[2017-08-23] MEDS: AMLODIPINE 10 MG TAB PO (08:29)
[2017-08-23] MEDS: ERTAPENEM SODIUM 1 GM in SOD CHLORIDE 0.9% 100 ML IVPB (10:27)
[2017-08-23] MEDS: MAGNESIUM HYDROXIDE 30ML CUP PO (11:51)
[2017-08-23] MEDS: POLYETHYLENE GLYCOL 17 GM PACKET PO (11:52)
[2017-08-23] MEDS: LORAZEPAM 1 MG TAB PO (15:54)
[2017-08-23] MEDS: QUETIAPINE 100 MG TAB PO (21:03)
[2017-08-23] MEDS: ATORVASTATIN 20 MG TAB PO (21:03)
[2017-08-23] MEDS: DOCUSATE SODIUM 250 MG CAP PO (21:03)
[2017-08-23] MEDS: DIPHENHYDRAMINE 50 MG CAP PO (21:15)
[2017-08-23] MEDS: ARTIFICIAL TEARS 15 ML OPH BOTH EYES (21:15)
[2017-08-24] MEDS: LORAZEPAM 1 MG TAB PO (05:14)
[2017-08-24] MEDS: DOCUSATE SODIUM 250 MG CAP PO (09:00)
[2017-08-24] MEDS: AMLODIPINE 10 MG TAB PO (09:01)
[2017-08-24] MEDS: FINASTERIDE 5 MG TAB PO (09:01)
[2017-08-24] MEDS: TAMSULOSIN (SR) 0.4 MG CAP PO (09:01)
[2017-08-24] MEDS: DEXTROSE 5%-0.45% NACL 1,000 ML IV (09:01)
[2017-08-24] MEDS: MUPIROCIN 2% 22 GM OINT TOP (09:05)
[2017-08-24] MEDS: ARTIFICIAL TEARS 15 ML OPH BOTH EYES (09:09)
[2017-08-24] MEDS: ONDANSETRON 4 MG INJ IV (10:40)
[2017-08-24] MEDS: ERTAPENEM SODIUM 1 GM in SOD CHLORIDE 0.9% 100 ML IVPB (10:40)
[2017-08-24 21:08] LABS: IMMUNOGLOBULIN E 35 kU/L (<OR=114)
== END 2017-08-24 14:20 | disposition home health service (06) | DRG 690 ==
LOC: E/R 02:41 → PP2 03:19
PROC: 02HV33Z Insertion of Infusion Device into Superior Vena Cava, Percutaneous Approach (ICD-10-PCS; principal; 2017-08-20)
DX: N39.0 Urinary tract infection, site not specified (principal); I10 Essential (primary) hypertension; F41.9 Anxiety disorder, unspecified; Z88.0 Allergy status to penicillin; Z88.1 Allergy status to other antibiotic agents
CPT/HCPCS: 36569; 71045; 76775; 76937; 80048; 80053; 80150; 81001; 82785; 83735; 84100; 85025; 87040; 87081; 87086; 99217; 99285-25; G0378

== ENCOUNTER 2017-08-24 22:34 | Emergency (ER) | payer OTHER | END 2017-08-25 03:02 | disposition home or self-care (01) | LOC: E/R 08-25 03:02 | DX: N30.00 Acute cystitis without hematuria (principal); I10 Essential (primary) hypertension; Z87.891 Personal history of nicotine dependence | CPT/HCPCS: 99283; Z7502 ==

== ENCOUNTER 2017-08-25 17:14 | Emergency (ER) | payer OTHER ==
[2017-08-25] MEDS: ERTAPENEM SODIUM 1 GM in SOD CHLORIDE 0.9% 100 ML IVPB (19:21)
== END 2017-08-25 20:50 | disposition home or self-care (01) ==
LOC: E/R 17:14
DX: N39.0 Urinary tract infection, site not specified (principal); I10 Essential (primary) hypertension; Z87.891 Personal history of nicotine dependence
CPT/HCPCS: 96374; 99284-25

== ENCOUNTER 2017-09-22 16:31 | Inpatient (IN) | payer OTHER ==
[2017-09-22 18:49] LABS: ADD MAN DIFF? NO
[2017-09-22 18:51] LABS: BASOPHILS % 0.4 % (0.0-2.0); EOSINOPHILS # 0.3 10^3/ul (0.0-0.5); EOSINOPHILS % 2.6 % (0.0-7.0); HEMATOCRIT 30.1 % (42.0-52.0); HEMOGLOBIN 8.9 g/dl (14.0-18.0); LYMPHOCYTES # 2.6 10^3/ul (0.8-2.9); LYMPHOCYTES % 24.4 % (15.0-51.0); MEAN CORPUSCULAR HEMOGLOBIN 23.6 pg (29.0-33.0); MEAN CORPUSCULAR HGB CONC 29.6 g/dl (32.0-37.0); MEAN CORPUSCULAR VOLUME 79.8 fl (82.0-101.0); MEAN PLATELET VOLUME 9.9 fl (7.4-10.4); MONOCYTE # 0.9 10^3/ul (0.3-0.9); MONOCYTES % 8.5 % (0.0-11.0); NEUTROPHIL # 6.9 10^3/ul (1.6-7.5); NEUTROPHILS % 63.7 % (39.0-77.0); PLATELET COUNT 325 10^3/UL (140-415); RED BLOOD COUNT 3.77 10^6/ul (4.70-6.10); RED CELL DISTRIBUTION WIDTH 16.2 % (11.5-14.5)
[2017-09-22 18:51] LABS: WHITE BLOOD COUNT 10.8 10^3/ul (4.8-10.8)
[2017-09-22 19:10] LABS: ALANINE AMINOTRANSFERASE 22 IU/L (13-69); ALBUMIN 3.8 g/dl (3.3-4.9); ALBUMIN/GLOBULIN RATIO 1.15; ALKALINE PHOSPHATASE 115 IU/L (42-121); ANION GAP 12 (8-16); ASPARTATE AMINO TRANSFERASE 21 IU/L (15-46); BILIRUBIN,INDIRECT 0.2 mg/dl (0-1.1); BILIRUBIN,TOTAL 0.2 mg/dl (0.2-1.3); BLOOD UREA NITROGEN 18 mg/dl (7-20); CALCIUM 8.8 mg/dl (8.4-10.2); CARBON DIOXIDE 24 mmol/L (21-31); CHLORIDE 107 mmol/L (97-110); GLUCOSE 98 mg/dl (70-220); POTASSIUM 3.6 mmol/L (3.5-5.1); SODIUM 139 mmol/L (135-144); TOTAL PROTEIN 7.1 g/dl (6.1-8.1)
[2017-09-22] MEDS: ERTAPENEM SODIUM 1 GM in SOD CHLORIDE 0.9% 100 ML IVPB (19:29)
[2017-09-22] MEDS ORDERED: ACETAMINOPHEN 325 MG TAB PO (19:30)
[2017-09-22] MEDS ORDERED: ONDANSETRON 4 MG INJ IV (19:30)
[2017-09-22] MEDS: LORAZEPAM 1 MG TAB PO (19:37)
[2017-09-23] MEDS ORDERED: LORAZEPAM 1 MG TAB PO
[2017-09-23] MEDS: CLOTRIMAZOLE 1% 30 GM CR TOP ×3 (01:37→20:18)
[2017-09-23] MEDS: QUETIAPINE 100 MG TAB PO ×2 (01:37→20:17)
[2017-09-23] MEDS: ATORVASTATIN 20 MG TAB PO ×2 (01:37→20:17)
[2017-09-23 04:58] LABS: ADD UMIC YES; UR ASCORBIC ACID NEGATIVE (NEGATIVE); UR BILIRUBIN (Dip) NEGATIVE (NEGATIVE); UR BLOOD (Dip) 2+ mg/dL (NEGATIVE); UR CLARITY CLEAR (CLEAR); UR COLOR STRAW (YELLOW); UR GLUCOSE (Dip) NEGATIVE (NEGATIVE); UR KETONES (Dip) NEGATIVE (NEGATIVE); UR LEUKOCYTE ESTERASE (Dip) 3+ Leu/ul (NEGATIVE); UR NITRITE (Dip) NEGATIVE (NEGATIVE); UR RBC 2 /HPF (0-5); UR SPECIFIC GRAVITY (Dip) 1.005 (1.003-1.030); UR TOTAL PROTEIN (Dip) NEGATIVE (NEGATIVE); UR UROBILINOGEN (Dip) NEGATIVE (NEGATIVE); UR WBC 106 /HPF (0-5)
[2017-09-23 05:18] LABS: ADD MAN DIFF? NO
[2017-09-23 05:25] LABS: BASOPHIL # 0.1 10^3/ul (0.0-0.1); BASOPHILS % 0.5 % (0.0-2.0); EOSINOPHILS # 0.3 10^3/ul (0.0-0.5); EOSINOPHILS % 2.8 % (0.0-7.0); HEMATOCRIT 28.6 % (42.0-52.0); HEMOGLOBIN 8.5 g/dl (14.0-18.0); LYMPHOCYTES # 2.4 10^3/ul (0.8-2.9); LYMPHOCYTES % 24.8 % (15.0-51.0); MEAN CORPUSCULAR HEMOGLOBIN 23.4 pg (29.0-33.0); MEAN CORPUSCULAR HGB CONC 29.7 g/dl (32.0-37.0); MEAN CORPUSCULAR VOLUME 78.8 fl (82.0-101.0); MEAN PLATELET VOLUME 10.4 fl (7.4-10.4); MONOCYTE # 0.9 10^3/ul (0.3-0.9); NEUTROPHILS % 62.6 % (39.0-77.0); PLATELET COUNT 329 10^3/UL (140-415); RED BLOOD COUNT 3.63 10^6/ul (4.70-6.10); RED CELL DISTRIBUTION WIDTH 16.3 % (11.5-14.5)
[2017-09-23 05:25] LABS: WHITE BLOOD COUNT 9.6 10^3/ul (4.8-10.8)
[2017-09-23 05:48] LABS: ALANINE AMINOTRANSFERASE 23 IU/L (13-69); ALBUMIN 3.3 g/dl (3.3-4.9); ALKALINE PHOSPHATASE 108 IU/L (42-121); ANION GAP 8 (8-16); ASPARTATE AMINO TRANSFERASE 20 IU/L (15-46); BILIRUBIN,INDIRECT 0.3 mg/dl (0-1.1); BILIRUBIN,TOTAL 0.3 mg/dl (0.2-1.3); BLOOD UREA NITROGEN 13 mg/dl (7-20); CALCIUM 8.4 mg/dl (8.4-10.2); CARBON DIOXIDE 25 mmol/L (21-31); CHLORIDE 114 mmol/L (97-110); CREATININE 0.91 mg/dl (0.61-1.24); GLUCOSE 95 mg/dl (70-220); PHOSPHORUS 3.2 mg/dl (2.5-4.9); POTASSIUM 3.4 mmol/L (3.5-5.1); SODIUM 144 mmol/L (135-144); TOTAL PROTEIN 6.3 g/dl (6.1-8.1)
[2017-09-23 07:12] LABS: IRON 17 ug/dl (35-150)
[2017-09-23 07:21] LABS: % IRON SATURATION 5 % SAT (22-52); TOTAL IRON BINDING CAPACITY 343 ug/dl (241-421)
[2017-09-23 07:46] LABS: FERRITIN 5.8 ng/ml (11.1-264.0)
[2017-09-23] MEDS: LORAZEPAM 1 MG TAB PO ×2 (08:43→21:45)
[2017-09-23] MEDS: FINASTERIDE 5 MG TAB PO (08:44)
[2017-09-23] MEDS: BENAZEPRIL 20 MG TAB PO (08:44)
[2017-09-23] MEDS: AMLODIPINE 10 MG TAB PO (08:44)
[2017-09-23 14:20] LABS: ANISOCYTOSIS 1+ (0-0); BAND NEUTROPHILS #M 0.4 10^3/ul (0.0-0.6); BAND NEUTROPHILS % (M) 5 % (0-4); EOSINOPHILS % (M) 4 % (0-7); HYPOCHROMASIA 2+ (0-0); LYMPHOCYTES #M 2.4 10^3/ul (0.8-2.9); LYMPHOCYTES % (M) 25 % (15-51); MICROCYTOSIS 1+ (0-0); MONOCYTE #M 0.6 10^3/ul (0.3-0.9); MONOCYTES % (M) 7 % (0-11); PLATELET ESTIMATE NORMAL; POIKILOCYTOSIS 1+ (0-0); POLYCHROMASIA 3+ (0-0); REACTIVE LYMPHOCYTES% (M) 1 % (0-0); SEG NEUT #M 5.6 10^3/ul (1.6-7.5); SEGMENTED NEUTROPHILS (M) % 58 % (39-77); SMUDGE%M 4 % (0-0)
[2017-09-23] MEDS: POTASSIUM CHLORIDE (SR) 20 MEQ TAB PO (17:15)
[2017-09-23] MEDS: ACETAMINOPHEN 325 MG TAB PO (17:48)
[2017-09-23] MEDS: ERTAPENEM SODIUM 1 GM in SOD CHLORIDE 0.9% 100 ML IVPB (20:17)
[2017-09-23] MEDS: FERROUS GLUCONATE (EC) 325 MG TAB PO (20:17)
[2017-09-23] MEDS: TAMSULOSIN (SR) 0.4 MG CAP PO (20:17)
[2017-09-24] MEDS: AMLODIPINE 10 MG TAB PO (09:04)
[2017-09-24] MEDS: CLOTRIMAZOLE 1% 30 GM CR TOP ×2 (09:04→20:57)
[2017-09-24] MEDS: FERROUS GLUCONATE (EC) 325 MG TAB PO ×2 (09:04→20:47)
[2017-09-24] MEDS: FINASTERIDE 5 MG TAB PO (09:04)
[2017-09-24] MEDS: BENAZEPRIL 20 MG TAB PO (09:05)
[2017-09-24] MEDS ORDERED: LORAZEPAM 1 MG TAB PO (11:30)
[2017-09-24] MEDS: LORAZEPAM 1 MG TAB PO ×2 (11:58→20:47)
[2017-09-24] MEDS: DOXYCYCLINE 100 MG TAB PO ×2 (11:58→20:47)
[2017-09-24] MEDS: ACETAMINOPHEN 325 MG TAB PO (20:47)
[2017-09-24] MEDS: ATORVASTATIN 20 MG TAB PO (20:47)
[2017-09-24] MEDS: TAMSULOSIN (SR) 0.4 MG CAP PO (20:54)
[2017-09-24] MEDS: ERTAPENEM SODIUM 1 GM in SOD CHLORIDE 0.9% 100 ML IVPB (21:37)
[2017-09-24] MEDS: QUETIAPINE 100 MG TAB PO (21:38)
[2017-09-25 05:49] LABS: ADD MAN DIFF? NO
[2017-09-25 05:54] LABS: WHITE BLOOD COUNT 6.5 10^3/ul (4.8-10.8)
[2017-09-25 05:54] LABS: BASOPHILS % 0.5 % (0.0-2.0); EOSINOPHILS # 0.4 10^3/ul (0.0-0.5); EOSINOPHILS % 6.2 % (0.0-7.0); HEMATOCRIT 31.7 % (42.0-52.0); HEMOGLOBIN 9.3 g/dl (14.0-18.0); LYMPHOCYTES # 2.1 10^3/ul (0.8-2.9); MEAN CORPUSCULAR HEMOGLOBIN 23.7 pg (29.0-33.0); MEAN CORPUSCULAR HGB CONC 29.3 g/dl (32.0-37.0); MEAN CORPUSCULAR VOLUME 80.7 fl (82.0-101.0); MONOCYTE # 0.8 10^3/ul (0.3-0.9); MONOCYTES % 11.8 % (0.0-11.0); NEUTROPHIL # 3.2 10^3/ul (1.6-7.5); NEUTROPHILS % 49.3 % (39.0-77.0); PLATELET COUNT 338 10^3/UL (140-415); RED BLOOD COUNT 3.93 10^6/ul (4.70-6.10); RED CELL DISTRIBUTION WIDTH 16.2 % (11.5-14.5)
[2017-09-25 06:14] LABS: ANION GAP 10 (8-16); BLOOD UREA NITROGEN 15 mg/dl (7-20); CALCIUM 8.6 mg/dl (8.4-10.2); CARBON DIOXIDE 24 mmol/L (21-31); CHLORIDE 112 mmol/L (97-110); CREATININE 1.07 mg/dl (0.61-1.24); GLUCOSE 95 mg/dl (70-220); SODIUM 142 mmol/L (135-144)
[2017-09-25] MEDS: AMLODIPINE 10 MG TAB PO ×2 (09:00→10:11)
[2017-09-25] MEDS: BENAZEPRIL 20 MG TAB PO ×2 (09:00→10:11)
[2017-09-25] MEDS: DOXYCYCLINE 100 MG TAB PO ×2 (09:47→20:19)
[2017-09-25] MEDS: FERROUS GLUCONATE (EC) 325 MG TAB PO ×2 (09:47→20:19)
[2017-09-25] MEDS: FINASTERIDE 5 MG TAB PO (09:47)
[2017-09-25] MEDS: CLOTRIMAZOLE 1% 30 GM CR TOP ×2 (09:48→20:20)
[2017-09-25] MEDS: LORAZEPAM 1 MG TAB PO (12:57)
[2017-09-25] MEDS: TOLTERODINE (SR) 4 MG CAP PO (18:54)
[2017-09-25] MEDS: QUETIAPINE 100 MG TAB PO (20:19)
[2017-09-25] MEDS: ATORVASTATIN 20 MG TAB PO (20:19)
[2017-09-25] MEDS: TAMSULOSIN (SR) 0.4 MG CAP PO (20:19)
[2017-09-25] MEDS: ACETAMINOPHEN 325 MG TAB PO (20:20)
[2017-09-25] MEDS: ERTAPENEM SODIUM 1 GM in SOD CHLORIDE 0.9% 100 ML IVPB (21:25)
[2017-09-26 05:31] LABS: ADD MAN DIFF? NO
[2017-09-26 05:45] LABS: WHITE BLOOD COUNT 5.8 10^3/ul (4.8-10.8)
[2017-09-26 05:45] LABS: BASOPHILS % 0.5 % (0.0-2.0); EOSINOPHILS # 0.4 10^3/ul (0.0-0.5); EOSINOPHILS % 7.4 % (0.0-7.0); HEMATOCRIT 30.7 % (42.0-52.0); HEMOGLOBIN 9.2 g/dl (14.0-18.0); LYMPHOCYTES # 1.9 10^3/ul (0.8-2.9); LYMPHOCYTES % 33.3 % (15.0-51.0); MEAN CORPUSCULAR HEMOGLOBIN 24.1 pg (29.0-33.0); MEAN CORPUSCULAR VOLUME 80.4 fl (82.0-101.0); MONOCYTE # 0.7 10^3/ul (0.3-0.9); MONOCYTES % 11.9 % (0.0-11.0); NEUTROPHIL # 2.7 10^3/ul (1.6-7.5); NEUTROPHILS % 46.6 % (39.0-77.0); PLATELET COUNT 335 10^3/UL (140-415); RED BLOOD COUNT 3.82 10^6/ul (4.70-6.10); RED CELL DISTRIBUTION WIDTH 16.5 % (11.5-14.5)
[2017-09-26 05:58] LABS: ALBUMIN 3.3 g/dl (3.3-4.9); ANION GAP 9 (8-16); BLOOD UREA NITROGEN 16 mg/dl (7-20); CALCIUM 8.8 mg/dl (8.4-10.2); CARBON DIOXIDE 26 mmol/L (21-31); CHLORIDE 111 mmol/L (97-110); CREATININE 0.97 mg/dl (0.61-1.24); GLUCOSE 94 mg/dl (70-220); MAGNESIUM 2.2 mg/dl (1.7-2.5); PHOSPHORUS 3.3 mg/dl (2.5-4.9); POTASSIUM 3.9 mmol/L (3.5-5.1); SODIUM 142 mmol/L (135-144)
[2017-09-26] MEDS: TOLTERODINE (SR) 4 MG CAP PO (10:48)
[2017-09-26] MEDS: BENAZEPRIL 20 MG TAB PO (10:49)
[2017-09-26] MEDS: FERROUS GLUCONATE (EC) 325 MG TAB PO ×2 (10:49→21:44)
[2017-09-26] MEDS: FINASTERIDE 5 MG TAB PO (10:49)
[2017-09-26] MEDS: AMLODIPINE 10 MG TAB PO (10:49)
[2017-09-26] MEDS: CLOTRIMAZOLE 1% 30 GM CR TOP ×2 (10:50→22:55)
[2017-09-26] MEDS: DOXYCYCLINE 100 MG TAB PO ×2 (10:50→21:44)
[2017-09-26] MEDS: LORAZEPAM 1 MG TAB PO ×3 (10:50→21:44)
[2017-09-26] MEDS: ATORVASTATIN 20 MG TAB PO (21:44)
[2017-09-26] MEDS: ERTAPENEM SODIUM 1 GM in SOD CHLORIDE 0.9% 100 ML IVPB (21:48)
[2017-09-26] MEDS: TAMSULOSIN (SR) 0.4 MG CAP PO (21:48)
[2017-09-26] MEDS: QUETIAPINE 100 MG TAB PO (22:54)
[2017-09-27 06:00] LABS: ADD MAN DIFF? NO
[2017-09-27 06:02] LABS: BASOPHILS % 0.6 % (0.0-2.0); EOSINOPHILS # 0.4 10^3/ul (0.0-0.5); EOSINOPHILS % 6.2 % (0.0-7.0); HEMATOCRIT 31.5 % (42.0-52.0); HEMOGLOBIN 9.3 g/dl (14.0-18.0); LYMPHOCYTES # 2.2 10^3/ul (0.8-2.9); LYMPHOCYTES % 32.6 % (15.0-51.0); MEAN CORPUSCULAR HEMOGLOBIN 23.7 pg (29.0-33.0); MEAN CORPUSCULAR HGB CONC 29.5 g/dl (32.0-37.0); MEAN CORPUSCULAR VOLUME 80.4 fl (82.0-101.0); MEAN PLATELET VOLUME 9.9 fl (7.4-10.4); MONOCYTE # 0.7 10^3/ul (0.3-0.9); MONOCYTES % 10.4 % (0.0-11.0); NEUTROPHIL # 3.4 10^3/ul (1.6-7.5); NEUTROPHILS % 49.8 % (39.0-77.0); PLATELET COUNT 339 10^3/UL (140-415); RED BLOOD COUNT 3.92 10^6/ul (4.70-6.10); RED CELL DISTRIBUTION WIDTH 16.8 % (11.5-14.5)
[2017-09-27 06:02] LABS: WHITE BLOOD COUNT 6.7 10^3/ul (4.8-10.8)
[2017-09-27 06:30] LABS: ALBUMIN 3.1 g/dl (3.3-4.9); ANION GAP 8 (8-16); BLOOD UREA NITROGEN 20 mg/dl (7-20); CALCIUM 8.9 mg/dl (8.4-10.2); CARBON DIOXIDE 25 mmol/L (21-31); CHLORIDE 112 mmol/L (97-110); CREATININE 1.13 mg/dl (0.61-1.24); GLUCOSE 89 mg/dl (70-220); PHOSPHORUS 3.7 mg/dl (2.5-4.9); POTASSIUM 4.3 mmol/L (3.5-5.1); SODIUM 141 mmol/L (135-144)
[2017-09-27] MEDS: TOLTERODINE (SR) 2 MG CAP PO (09:00)
[2017-09-27] MEDS: LORAZEPAM 1 MG TAB PO ×2 (09:21→20:18)
[2017-09-27] MEDS: FINASTERIDE 5 MG TAB PO (09:21)
[2017-09-27] MEDS: AMLODIPINE 10 MG TAB PO (09:21)
[2017-09-27] MEDS: FERROUS GLUCONATE (EC) 325 MG TAB PO ×2 (09:21→20:18)
[2017-09-27] MEDS: DOXYCYCLINE 100 MG TAB PO ×2 (09:21→20:18)
[2017-09-27] MEDS: BENAZEPRIL 20 MG TAB PO (09:21)
[2017-09-27] MEDS: CLOTRIMAZOLE 1% 30 GM CR TOP ×2 (09:25→20:20)
[2017-09-27] MEDS: TAMSULOSIN (SR) 0.4 MG CAP PO (20:18)
[2017-09-27] MEDS: ATORVASTATIN 20 MG TAB PO (20:18)
[2017-09-27] MEDS: QUETIAPINE 100 MG TAB PO (20:18)
[2017-09-28 06:38] LABS: ADD MAN DIFF? NO
[2017-09-28 06:45] LABS: BASOPHILS % 0.6 % (0.0-2.0); EOSINOPHILS # 0.4 10^3/ul (0.0-0.5); EOSINOPHILS % 5.5 % (0.0-7.0); HEMATOCRIT 31.4 % (42.0-52.0); HEMOGLOBIN 9.3 g/dl (14.0-18.0); LYMPHOCYTES # 2.4 10^3/ul (0.8-2.9); LYMPHOCYTES % 35.9 % (15.0-51.0); MEAN CORPUSCULAR HEMOGLOBIN 23.7 pg (29.0-33.0); MEAN CORPUSCULAR HGB CONC 29.6 g/dl (32.0-37.0); MEAN CORPUSCULAR VOLUME 79.9 fl (82.0-101.0); MEAN PLATELET VOLUME 10.1 fl (7.4-10.4); MONOCYTE # 0.8 10^3/ul (0.3-0.9); MONOCYTES % 11.4 % (0.0-11.0); NEUTROPHIL # 3.1 10^3/ul (1.6-7.5); NEUTROPHILS % 46.3 % (39.0-77.0); PLATELET COUNT 337 10^3/UL (140-415); RED BLOOD COUNT 3.93 10^6/ul (4.70-6.10); RED CELL DISTRIBUTION WIDTH 17.3 % (11.5-14.5)
[2017-09-28 06:45] LABS: WHITE BLOOD COUNT 6.8 10^3/ul (4.8-10.8)
[2017-09-28 07:08] LABS: ALBUMIN 3.2 g/dl (3.3-4.9); ANION GAP 10 (8-16); BLOOD UREA NITROGEN 18 mg/dl (7-20); CALCIUM 8.7 mg/dl (8.4-10.2); CARBON DIOXIDE 26 mmol/L (21-31); CHLORIDE 111 mmol/L (97-110); CREATININE 1.14 mg/dl (0.61-1.24); GLUCOSE 93 mg/dl (70-220); PHOSPHORUS 3.6 mg/dl (2.5-4.9); POTASSIUM 4.2 mmol/L (3.5-5.1); SODIUM 143 mmol/L (135-144)
[2017-09-28] MEDS: DOXYCYCLINE 100 MG TAB PO ×2 (08:38→21:28)
[2017-09-28] MEDS: FERROUS GLUCONATE (EC) 325 MG TAB PO ×2 (08:39→21:29)
[2017-09-28] MEDS: FINASTERIDE 5 MG TAB PO (08:39)
[2017-09-28] MEDS: BENAZEPRIL 20 MG TAB PO (08:39)
[2017-09-28] MEDS: AMLODIPINE 10 MG TAB PO (08:39)
[2017-09-28] MEDS: CLOTRIMAZOLE 1% 30 GM CR TOP ×2 (08:41→21:29)
[2017-09-28] MEDS: LORAZEPAM 1 MG TAB PO ×2 (08:41→21:38)
[2017-09-28 10:13] LABS: PARTIAL THROMBOPLASTIN TIME 32.8 Sec (25.0-35.0)
[2017-09-28 10:20] LABS: INR 1.01; PROTIME 13.4 Sec (11.9-14.9)
[2017-09-28] MEDS ORDERED: LABETALOL HCL 20MG INJ IV (17:30)
[2017-09-28] MEDS ORDERED: TRIMETHOBENZAMIDE 100 MG/ML VIAL IM (17:30)
[2017-09-28] MEDS ORDERED: DIPHENHYDRAMINE 50 MG INJ IV (17:30)
[2017-09-28] MEDS ORDERED: IPRATROPIUM (NEB) 0.5 MG/2.5 ML AMP HHN (17:30)
[2017-09-28] MEDS ORDERED: ONDANSETRON 4 MG INJ IV (17:30)
[2017-09-28] MEDS ORDERED: MEPERIDINE 25 MG INJ IV (17:30)
[2017-09-28] MEDS ORDERED: HYDROmorphONE 1 MG/5 ML IV SYRINGE IV ×3 (17:30)
[2017-09-28] MEDS ORDERED: hydrALAzine 20 MG INJ IV (17:30)
[2017-09-28] MEDS ORDERED: ALBUTEROL 0.083% (NEB) 2.5 MG/3 ML AMP HHN (17:30)
[2017-09-28] MEDS ORDERED: FENTAnyl 50 MCG/ML VIAL IV ×3 (17:30)
[2017-09-28] MEDS ORDERED: OXYCODONE/ACETAMINOPHEN (5/325) TAB PO ×2 (17:30)
[2017-09-28] MEDS ORDERED: MIDAZOLAM 1 MG/ML 2 ML INJ IV (17:30)
[2017-09-28] MEDS ORDERED: EPHEDrine SULFATE 50 MG/5 ML SYG IV (17:30)
[2017-09-28] MEDS ORDERED: ROCURONIUM 50 MG INJ (17:41)
[2017-09-28] MEDS ORDERED: NEOSTIGMINE 3 MG/3 ML SYRINGE ×2 (17:41→18:30)
[2017-09-28] MEDS ORDERED: ONDANSETRON 4 MG INJ (17:41)
[2017-09-28] MEDS ORDERED: CEFAZOLIN 1 GM INJ (17:41)
[2017-09-28] MEDS ORDERED: PROPOFOL 20 ML (17:41)
[2017-09-28] MEDS ORDERED: DEXAMETHASONE 4 MG/ML 1 ML INJ (17:41)
[2017-09-28] MEDS ORDERED: FENTAnyl 50 MCG/ML VIAL (17:41)
[2017-09-28] MEDS ORDERED: GLYCOPYRROLATE 0.4 MG INJ ×2 (17:41→18:30)
[2017-09-28] MEDS: ERTAPENEM SODIUM 1 GM in SOD CHLORIDE 0.9% 100 ML IVPB (18:09)
[2017-09-28] MEDS ORDERED: LABETALOL HCL 20MG INJ (18:29)
[2017-09-28] MEDS: QUETIAPINE 100 MG TAB PO (21:29)
[2017-09-28] MEDS: TOLTERODINE (SR) 2 MG CAP PO (21:29)
[2017-09-28] MEDS: ATORVASTATIN 20 MG TAB PO (21:29)
[2017-09-28] MEDS: TAMSULOSIN (SR) 0.4 MG CAP PO (21:29)
[2017-09-29 06:24] LABS: ADD MAN DIFF? NO
[2017-09-29 06:30] LABS: WHITE BLOOD COUNT 8.1 10^3/ul (4.8-10.8)
[2017-09-29 06:30] LABS: BASOPHILS % 0.1 % (0.0-2.0); HEMATOCRIT 31.8 % (42.0-52.0); HEMOGLOBIN 9.4 g/dl (14.0-18.0); LYMPHOCYTES # 1.2 10^3/ul (0.8-2.9); LYMPHOCYTES % 14.7 % (15.0-51.0); MEAN CORPUSCULAR HEMOGLOBIN 23.3 pg (29.0-33.0); MEAN CORPUSCULAR HGB CONC 29.6 g/dl (32.0-37.0); MEAN CORPUSCULAR VOLUME 78.9 fl (82.0-101.0); MEAN PLATELET VOLUME 9.8 fl (7.4-10.4); MONOCYTE # 0.1 10^3/ul (0.3-0.9); MONOCYTES % 1.1 % (0.0-11.0); NEUTROPHIL # 6.8 10^3/ul (1.6-7.5); NEUTROPHILS % 83.4 % (39.0-77.0); PLATELET COUNT 356 10^3/UL (140-415); RED BLOOD COUNT 4.03 10^6/ul (4.70-6.10); RED CELL DISTRIBUTION WIDTH 17.4 % (11.5-14.5)
[2017-09-29 06:50] LABS: ANION GAP 12 (8-16); BLOOD UREA NITROGEN 19 mg/dl (7-20); CALCIUM 9.1 mg/dl (8.4-10.2); CARBON DIOXIDE 22 mmol/L (21-31); CHLORIDE 108 mmol/L (97-110); CREATININE 1.05 mg/dl (0.61-1.24); GLUCOSE 196 mg/dl (70-220); SODIUM 138 mmol/L (135-144)
[2017-09-29] MEDS: FINASTERIDE 5 MG TAB PO (08:28)
[2017-09-29] MEDS: BENAZEPRIL 20 MG TAB PO (08:28)
[2017-09-29] MEDS: FERROUS GLUCONATE (EC) 325 MG TAB PO ×2 (08:29→21:14)
[2017-09-29] MEDS: AMLODIPINE 10 MG TAB PO (08:29)
[2017-09-29] MEDS: DOXYCYCLINE 100 MG TAB PO ×2 (08:31→21:14)
[2017-09-29] MEDS: CLOTRIMAZOLE 1% 30 GM CR TOP ×2 (08:31→21:16)
[2017-09-29] MEDS: LORAZEPAM 1 MG TAB PO ×2 (08:36→21:14)
[2017-09-29] MEDS: ACETAMINOPHEN 325 MG TAB PO (12:02)
[2017-09-29] MEDS: QUETIAPINE 100 MG TAB PO (21:14)
[2017-09-29] MEDS: ATORVASTATIN 20 MG TAB PO (21:14)
[2017-09-29] MEDS: TOLTERODINE (SR) 2 MG CAP PO (21:14)
[2017-09-29] MEDS: TAMSULOSIN (SR) 0.4 MG CAP PO (21:16)
[2017-09-30 07:45] LABS: ANION GAP 10 (8-16); BLOOD UREA NITROGEN 22 mg/dl (7-20); CALCIUM 8.9 mg/dl (8.4-10.2); CARBON DIOXIDE 25 mmol/L (21-31); CHLORIDE 111 mmol/L (97-110); CREATININE 1.08 mg/dl (0.61-1.24); GLUCOSE 95 mg/dl (70-220); POTASSIUM 4.1 mmol/L (3.5-5.1); SODIUM 142 mmol/L (135-144)
[2017-09-30] MEDS: FERROUS GLUCONATE (EC) 325 MG TAB PO (09:14)
[2017-09-30] MEDS: DOXYCYCLINE 100 MG TAB PO (09:14)
[2017-09-30] MEDS: AMLODIPINE 10 MG TAB PO (09:15)
[2017-09-30] MEDS: LORAZEPAM 1 MG TAB PO (09:15)
[2017-09-30] MEDS: BENAZEPRIL 20 MG TAB PO (09:15)
[2017-09-30] MEDS: CLOTRIMAZOLE 1% 30 GM CR TOP (09:15)
== END 2017-09-30 13:00 | disposition home or self-care (01) | DRG 672 ==
LOC: E/R 16:31 → PP2 19:20
PROC: 0TND8ZZ Release Urethra, Via Natural or Artificial Opening Endoscopic (ICD-10-PCS; principal; 2017-09-28 17:57)
DX: N30.80 Other cystitis without hematuria (principal); N35.9 Urethral stricture, unspecified; N45.3 Epididymo-orchitis; I10 Essential (primary) hypertension; F41.9 Anxiety disorder, unspecified; E78.5 Hyperlipidemia, unspecified; Z90.79 Acquired absence of other genital organ(s); D50.9 Iron deficiency anemia, unspecified; N40.1 Benign prostatic hyperplasia with lower urinary tract symptoms; R33.8 Other retention of urine; K62.89 Other specified diseases of anus and rectum; B95.61 Methicillin susceptible Staphylococcus aureus infection as the cause of diseases classified elsewhere; R32 Unspecified urinary incontinence
CPT/HCPCS: 71045; 76775; 76870; 80048; 80053; 80069; 81001; 82728; 83540; 83735; 84100; 85025; 85610; 85730; 87086; 93005; 99285-25; G0378

== ENCOUNTER 2018-09-28 10:19 | Emergency (ER) | payer OTHER | END 2018-09-28 11:09 | disposition home or self-care (01) | LOC: FTE 10:19 | DX: H00.015 Hordeolum externum left lower eyelid (principal); I10 Essential (primary) hypertension; F17.210 Nicotine dependence, cigarettes, uncomplicated | CPT/HCPCS: 99283; Z7502 ==